=== PATIENT | female | born 1950 | race Hispanic/Latino ===

== ENCOUNTER 2018-05-12 07:09 | Day surgery (SDC) | payer OTHER ==
[2018-05-12] MEDS ORDERED: Ringers Lactate 1,000 ML IV ONE (07:34)
[2018-05-12] MEDS ORDERED: MIDAZOLAM HCL 2 MG/2 ML INJ ONE (08:23)
[2018-05-12] MEDS ORDERED: PROPOFOL 200 MG/20 ML VIAL IV ONE (08:23)
[2018-05-12] MEDS ORDERED: LIDOCAINE 1% MPF 5 ML VIAL ONE (08:23)
[2018-05-12] MEDS ORDERED: FENTANYL CITR 100 MCG/2 ML ONE (08:23)
[2018-05-12] MEDS: CEFAZOLIN 1GM (PREMIX IV) 1 GM/50 ML BAG ONE ×3 (08:29→08:40)
[2018-05-12] MEDS: BUPIVACA 0.25%/EPI 0.0005% MDV 50 ML VIAL ONE ×2 (08:36→08:56)
[2018-05-12] MEDS ORDERED: ROCURONIUM 50 MG/5 ML VIAL IV ONE (08:55)
[2018-05-12] MEDS ORDERED: METOCLOPRAMIDE 10 MG/2mL INJ ONE (08:58)
[2018-05-12] MEDS ORDERED: EPHEDRINE SULF 50 MG/ML VIAL ONE (08:59)
[2018-05-12] MEDS ORDERED: NS 0.9% VIAL 10 ML ONE (09:00)
[2018-05-12] MEDS: Ringers Lactate 1,000 ML IV ONE ×3 (09:36→09:54)
[2018-05-12] MEDS ORDERED: GLYCOPYRROLATE 0.2 MG/ML SYR ONE (09:39)
[2018-05-12] MEDS ORDERED: KETOROLAC 30 MG/ML INJ ONE (09:39)
[2018-05-12] MEDS ORDERED: ONDANSETRON 4 MG/2 ML VIAL ONE (09:39)
[2018-05-12] MEDS ORDERED: NEOSTIGMINE 1 MG/ML -5 ML SYRINGE ONE (09:39)
--- NOTE | 2018-05-12 09:51 | P.OP ---
Preoperative diagnosis: RIGHT femoral hernia Postoperative diagnosis: RIGHT femoral hernia Primary procedure: Open Right Femoral Hernia Repair - Bruce Anesthesia: GETA + Local Estimated blood loss: <5cc Specimen: Hernia sac, preperitoneal fat Findings: RIGHT femoral hernia Complications: None Transferred to: Recovery Room Condition: Good
[2018-05-12] MEDS: MEPERIDINE HCL 25 MG/0.5 ML ONE ×2 (10:11→10:23)
[2018-05-12] MEDS ORDERED: HYDROCODONE/APAP 5/325 MG TAB ONE (11:19)
--- NOTE | 2018-05-12 21:04 | OP ---
Date of Procedure: 05/12/2018 Surgeon: Beny Kolb MD, Preoperative Diagnosis: Right femoral hernia. Postoperative Diagnosis: Right femoral hernia. Procedure Performed: Open right Bruce femoral hernia repair. Anesthesia: General endotracheal plus local. Estimated Blood Loss: 5 cc. Specimens: Hernia sac, preperitoneal fat. Findings: Right femoral hernia. Complications: None. Disposition: Transferred to recovery room in good condition. Procedure In Detail: After informed consent was obtained, the patient was brought to the operating r oom, prepped and draped in the usual sterile fashion. After adequate anesthesia was achieved, the ar ea of the right groin was anesthetized appropriately. I made a Belkis type incision over the right femoral hernia and dissected down through the subcutaneous fat, Camper's fat, and to expose the apon eurosis inferior to the inguinal ligament. I dissected down to expose and circumferentially dissect around the hernia sac through the femoral canal while protecting the femoral vasculature. I dissecte d circumferentially until the neck was appreciated at its exit point. The deep inguinal ring was ama reciated adjacent to this. I then opened and incised the hernia sac and found only preperitoneal fat and a large hernia sac in this area through a very small tight defect. I performed a high ligation of the sac using two 2-0 Ethibond sutures. I then ligated the sac and sent it off for pathologic exa mination and identification. I then easily reduced the remaining contents to the normal anatomic spa ce through the hernia defect in the femoral canal. I then irrigated the area and inspected if proper hemostasis was achieved. I then performed a Bruce repair from the iliotibial tract/inguinal ligame nt to Bruce's ligament with 4 interrupted 0 Ethibond sutures with good coverage of the defect. I th en irrigated the area once again. There was a tension-free repair at this point. The vasculature an d femoral vessels were all intact without compromise or compression. I then irrigated the area once again and closed the deep dermal layer with a 3-0 Vicryl in an interrupted fashion, 4-0 Monocryl was used to close the skin in a running fashion, and Dermabond placed over top. Patient tolerated the pr ocedure well without evidence of complication and transferred to the PACU in good condition. All cou nts were correct at the end of the case. EREN/ETTA Voice ID: [id number] Report ID: [id number]
== END 2018-05-12 12:30 | disposition home or self-care (01) ==
LOC: OR 07:09
PROVIDERS: ATTEND Surgery
PROC: 0YQ70ZZ Repair Right Femoral Region, Open Approach (ICD-10-PCS; principal; 2018-05-12 08:30)
DX: K41.90 Unilateral femoral hernia, without obstruction or gangrene, not specified as recurrent (principal); Z83.3 Family history of diabetes mellitus; Z82.61 Family history of arthritis; Z82.49 Family history of ischemic heart disease and other diseases of the circulatory system
CPT/HCPCS: 88302; J0690; J2175; J2250; J2405; J2704; J2710; J2765; J3010